=== PATIENT | male | born 1945 | race Caucasian/White ===

== ENCOUNTER 2020-09-10 18:35 | Outpatient (CLI) | payer MEDICARE | END 2020-09-10 18:36 | disposition short-term general hospital (02) | LOC: EMS 18:35 | DX: R09.02 Hypoxemia (principal) | CPT/HCPCS: A0425; A0429 ==

== ENCOUNTER 2020-12-20 13:05 | Outpatient (CLI) | payer MEDICARE | END 2020-12-20 13:06 | disposition EMS.NT | LOC: EMS 13:05 | DX: R53.83 Other fatigue (principal); R61 Generalized hyperhidrosis; R23.1 Pallor ==